=== PATIENT | female | born 1970 | race Caucasian/White ===

== ENCOUNTER 2018-07-15 06:30 | Emergency (ER) | payer SELFPAY ==
[~2018-07-15] VITALS: Ht 160 cm; Wt 72.6 kg
[2018-07-15 06:36] VITALS: BP 159/90
--- NOTE | 2018-07-15 06:36 | NUR ---
TO BED # 11 AMBULATORY
--- NOTE | 2018-07-15 07:10 | NUR ---
REPORT NOT RECEIVED. PATIENT NOT SEEN BY MOLECULAR GENETIC PATHOLOGIST NURSE
--- NOTE | 2018-07-15 07:11 | NUR ---
BIB SON. PATIENT PRESENTS TO ED WITH VOMITING X1 DAY AND DIZZINESS. PT STATES SHE HAS THROWN UP 5 TIMES TODAY AND HAS FELT DIZZY FOR 3 DAYS. STATES HER STOMACH IS UNSETTLED BUT DENIES PAIN. SKIN IS PINK/WARM/DRY; AAOX4 WITH EVEN AND STEADY GAIT; LUNGS CLEAR BL; HR EVEN AND REGULAR; PT DENIES ANY FEVER, CP, SOB, OR COUGH AT THIS TIME; VSS; PATIENT POSITIONED FOR COMFORT; HOB ELEVATED; BEDRAILS UP X2; BED DOWN. ER MD MADE AWARE OF PT STATUS.
[2018-07-15] MEDS ORDERED: ONDANSETRON 4 MG ODT PO ONE (07:20)
[2018-07-15] MEDS ORDERED: MECLIZINE 25 MG TAB PO ONE (07:20)
[2018-07-15 08:35] VITALS: BP 135/95
--- NOTE | 2018-07-15 08:35 | NUR ---
Patient discharged with v/s stable. Written and verbal after care instructions given and explained. Patient alert, oriented and verbalized understanding of instructions. Ambulatory with steady gait. All questions addressed prior to discharge. ID band removed. Patient advised to follow up with PMD. Rx of zofran, and meclizine given. Patient educated on indication of medication including possible reaction and side effects. Opportunity to ask questions provided and answered.
== END 2018-07-15 08:35 | disposition home or self-care (01) ==
LOC: MED 06:30
DX: R42 Dizziness and giddiness (principal); B34.9 Viral infection, unspecified; R03.0 Elevated blood-pressure reading, without diagnosis of hypertension; Z88.0 Allergy status to penicillin
CPT/HCPCS: 99283; J8597; Q0162

== ENCOUNTER 2023-10-07 13:15 | Emergency (ER) | payer MEDICAID, OTHER ==
[~2023-10-07] VITALS: Ht 160 cm; Wt 63.5 kg
[2023-10-07 13:28] VITALS: BP 134/84; PULSE 73; RESP 17; TEMP 97.7; O2SAT 99
[2023-10-07] MEDS ORDERED: TETRACAINE HCL/PF 0.5% OPTH 4 ML BTL OP ONE (13:50)
[2023-10-07] MEDS ORDERED: FLUORESCEIN OPTH STRIP 1 MG OP ONE (13:50)
[2023-10-07] MEDS ORDERED: POLY10DR5 OP (14:31)
== END 2023-10-07 14:36 | disposition home or self-care (01) ==
LOC: MED 13:15
DX: H10.89 Other conjunctivitis (principal); B96.89 Other specified bacterial agents as the cause of diseases classified elsewhere; Z79.2 Long term (current) use of antibiotics; Z88.0 Allergy status to penicillin
CPT/HCPCS: 99283